=== PATIENT | male | born 1970 | race Caucasian/White ===

== ENCOUNTER 2021-09-08 22:02 | Inpatient (IN) | payer OTHER, SELFPAY ==
[2021-09-09 00:28] VITALS: BMI 32.2
[2021-09-09] MEDS ORDERED: Nitroglycerin 0.4 MG TAB (25 Tab Bottle) SL PRN ×2 (01:31→15:22)
[2021-09-09] MEDS ORDERED: Ondansetron ODT 4 MG TAB PO PRN (01:31)
[2021-09-09] MEDS: Acetaminophen 325 MG TAB PO PRN ×2 (02:06→15:20)
[2021-09-09] MEDS ORDERED: Lorazepam 2 MG/ML VIAL IM PRN (02:07)
[2021-09-09] MEDS ORDERED: hydrALAZINE 10 MG TAB PO PRN ×2 (02:24→02:34)
[2021-09-09 03:12] LABS: #Eosinphils 0.2 thou/uL (0.0-0.7); #Monocytes 0.5 thou/uL (0.11-0.59); #Neutrophils 4.5 thou/uL (1.40-6.50); %Basophils 0.3 % (0.0-1.0); %Eosinophils 2.6 % (0.0-10.0); %Lymphocytes 27.6 % (21.0-51.0); %Monocytes 7.3 % (0.0-10.0); %Neutrophils 62.2 % (42.0-75.0); Mean Corpuscular HGB CONC 33.8 g/dL (32.0-36.0); Mean Corpuscular Hemoglobin 33.1 pg (27.0-31.0); Mean Corpuscular Volume 97.8 fL (78.0-98.0); Mean Platelet Volume 7.4 fL (7.4-10.4); Platelet Count 202 thou/uL (130-400); RBC Distribution Width 11.6 % (11.5-14.5); Red Blood Cell (RBC) Count 4.53 mill/uL (4.70-6.10); White Blood Cell (WBC) Count 7.3 thou/uL (4.8-10.8)
[2021-09-09 03:31] LABS: Troponin I 0.034 ng/mL (< 0.028)
[2021-09-09 03:37] LABS: Hemoglobin A1c 5.2 % (4.0-6.0)
[2021-09-09 03:39] LABS: Phosphorus 3.7 mg/dL (2.3-4.7)
[2021-09-09 03:40] LABS: Anion Gap 15 mmol/L (10-20); BUN (Urea Nitrogen) 12 mg/dL (8.4-25.7); Calc. Creatinine Clearance 150 mL/min (70-130); Carbon Dioxide 21 mmol/L (22-29); Cardiac Risk 5.9 (Less than 4.5); Chloride 105 mmol/L (98-107); Cholesterol 176 mg/dl (< 200 Desired); Estimated GFR 105; Glucose 100 mg/dL (70-105); HDL Cholesterol 30 mg/dL (>60 Neg Risk); LDL Cholesterol, Calculated 110 mg/dL; Potassium 3.9 mmol/L (3.5-5.1); Sodium 137 mmol/L (136-145); Triglycerides 178 mg/dL (Less than 150)
[2021-09-09 07:06] LABS: Troponin I 0.023 ng/mL (< 0.028)
[2021-09-09] MEDS ORDERED: Multivit, Therapeutic 1 TAB PO SCH (09:00)
[2021-09-09] MEDS ORDERED: Folic Acid 1 MG TAB PO SCH (09:00)
[2021-09-09] MEDS ORDERED: Iopamidol 370 76% 100 ML VIAL ONE (09:25)
[2021-09-09] MEDS ORDERED: Communication Order-Pharmacy FS SCH (13:00)
[2021-09-09] MEDS ORDERED: Lidocaine 1% (PF) 30 ML VIAL ONE (13:01)
[2021-09-09] MEDS ORDERED: Heparin 10,000 UNITS/ 10 ML VIAL ONE (13:42)
[2021-09-09] MEDS ORDERED: Verapamil 5 MG/2 ML VIAL ONE (13:42)
[2021-09-09] MEDS ORDERED: Nitroglycerin 100MG/250ML BOT 250 ML ONE (13:42)
[2021-09-09] MEDS ORDERED: Midazolam HCl 2 mg/2 ml Vial ONE (13:53)
[2021-09-09] MEDS ORDERED: Lisinopril 10 MG TAB PO SCH (15:00)
[2021-09-09] MEDS ORDERED: Enoxaparin Sodium 100 MG/ML SYRINGE SC SCH ×2 (15:15→21:00)
[2021-09-09] MEDS ORDERED: Sodium Chloride 0.9% 200 ML IV PRN (15:22)
[2021-09-09] MEDS ORDERED: Acetaminophen/Codeine 30-300mg Tablet PO PRN ×2 (15:22)
[2021-09-09] MEDS ORDERED: Diazepam 5 MG TAB PO PRN (15:42)
[2021-09-09] MEDS ORDERED: Communication Order-Pharmacy FS ONE (15:42)
[2021-09-09] MEDS ORDERED: Atorvastatin Calcium 40 MG TAB PO SCH (21:00)
[2021-09-10] MEDS ORDERED: Lorazepam 1 MG TAB PO PRN (02:08)
[2021-09-10] MEDS ORDERED: Lisinopril 10 MG TAB PO SCH (09:00)
[2021-09-10] MEDS ORDERED: Lidocaine 1% MPF 2 ML VIAL ONE (10:03)
[2021-09-10] MEDS ORDERED: Bupivacaine PF 0.5% 30 ML VIAL ONE (11:11)
[2021-09-10] MEDS ORDERED: Albumin 5% 500 ML ONE (11:11)
[2021-09-10] MEDS ORDERED: EPINEPHrine 1 MG/ML AMP ONE (11:11)
[2021-09-10] MEDS ORDERED: Dexamethasone 4 mg/ml Vial ONE (11:11)
[2021-09-10] MEDS ORDERED: Heparin 10,000 UNITS/1 ML VIAL 30,000 UNITS in Sodium Chloride 0.9% 1,000 ML FS SCH (12:00)
[2021-09-10] MEDS ORDERED: ceFAZolin 2 GM/Dextrose 50 ML 2 GM in Premix Bag 1 BAG IVPB SCH ×2 (12:00→17:41)
[2021-09-10] MEDS ORDERED: Fentanyl 100 MCG/2 ML VIAL ONE ×4 (12:47→12:50)
[2021-09-10] MEDS ORDERED: Midazolam HCl 2 mg/2 ml Vial ONE (13:18)
[2021-09-10] MEDS ORDERED: CEFAZOLIN 2 GM VIAL ONE (13:21)
[2021-09-10] MEDS ORDERED: Sodium Chloride 0.9% 100 ML ONE (13:21)
[2021-09-10] MEDS ORDERED: Rocuronium Bromide 10 MG/ML (10ML VIAL) ONE (13:45)
[2021-09-10] MEDS ORDERED: Sodium Bicarb 50 MEQ/50 ML Abboject 8.4% SYRINGE ONE ×2 (13:45)
[2021-09-10] MEDS ORDERED: Vecuronium 10 MG VIAL ONE (13:45)
[2021-09-10] MEDS ORDERED: Esmolol 100 MG/10 ML VIAL ONE (13:45)
[2021-09-10] MEDS ORDERED: Mannitol 12.5 GM/50 ML ONE ×2 (13:45)
[2021-09-10] MEDS ORDERED: Lidocaine 2% PF 100 mg/5 ml Syringe ONE ×2 (13:45)
[2021-09-10] MEDS ORDERED: Nitroglycerin 50 MG/250 ML BOT ONE (13:45)
[2021-09-10] MEDS ORDERED: Cardioplegic Soln 1,000 ML BAG ONE ×2 (13:45)
[2021-09-10] MEDS ORDERED: Norepinephrine 4 MG/4 ML VIAL ONE (13:45)
[2021-09-10] MEDS ORDERED: Protamine Sulfate 250 MG/25 ML VIAL ONE ×2 (13:45)
[2021-09-10] MEDS ORDERED: PROPOFOL 200 MG/20 ML VIAL ONE (13:45)
[2021-09-10] MEDS ORDERED: Calcium Chloride 1 GM/10 ML Abboject SYRINGE ONE ×2 (13:45)
[2021-09-10] MEDS ORDERED: Phenylephrine 10 MG/ML VIAL ONE (13:45)
[2021-09-10] MEDS ORDERED: Thrombin 5000 UNITS/5 ML VIAL ONE ×2 (13:45)
[2021-09-10] MEDS ORDERED: Lidocaine 1% PF 5 ML VIAL ONE (13:45)
[2021-09-10] MEDS ORDERED: Magnesium Sulfate 1 GM/2 ML VIAL ONE ×2 (13:45)
[2021-09-10] MEDS ORDERED: Papaverine 60 MG/2 ML VIAL ONE ×2 (13:45)
[2021-09-10] MEDS ORDERED: ePHEDrine 50 MG/ML VIAL ONE (13:45)
[2021-09-10] MEDS ORDERED: Heparin 5,000 UNITS/ML VIAL ONE ×2 (13:45)
[2021-09-10] MEDS ORDERED: Heparin 30,000 units/30 ml VIAL ONE ×2 (13:45)
[2021-09-10] MEDS ORDERED: Aminocaproic Acid 5 GM/20 ML VIAL ONE ×2 (13:45)
[2021-09-10] MEDS ORDERED: Dexmedetomidine 200 MCG/2 ML VIAL ONE (14:12)
[2021-09-10] MEDS ORDERED: Midazolam HCl 5 mg/5 ml Vial ONE ×2 (14:12→15:38)
[2021-09-10] MEDS ORDERED: Heparin 10,000 UNITS/ 10 ML VIAL ONE (14:31)
[2021-09-10] MEDS ORDERED: PHENYLEPHRINE-NS 100 MCG/ML 10 ML SYRINGE ONE (14:31)
[2021-09-10] MEDS ORDERED: Rocuronium Bromide 50 MG/5 ML VIAL ONE (15:38)
[2021-09-10 16:09] LABS: Actual Bicarbonate (HCO3a) 18.9 mEq/L (22-28); Analyzer IN Cardio OR; Base Excess (BEa) -6.6 mEq/L (-2.0 to +3.0); CO2 Tension 37.7 mmHg (35.0-45.0); Calcium, Ionized (arterial) 1.16 mmol/L (1.12-1.30); Carboxyhemoglobin (COHb) 1.5 gm% (0.0-3.0); Hemoglobin (Hb) 14.3 g/dL (14.0-18.0); O2 Tension (PaO2), arterial 372.7 mmHg (80.0-100.0); Potassium - ABG Lab 3.63 mmol/L (3.70-5.30); pH, Arterial 7.32 (7.35-7.45)
[2021-09-10] MEDS ORDERED: Fentanyl 100 MCG/2 ML VIAL SLOW IVP PRN (17:41)
[2021-09-10] MEDS ORDERED: Ondansetron PF 4 MG/2 ML Vial IVP PRN (17:41)
[2021-09-10] MEDS ORDERED: hydrALAZINE 20 MG/ML VIAL SLOW IVP PRN (17:41)
[2021-09-10] MEDS ORDERED: Mag-Al 1200 mg/1200 mg/30 ML UDCUP PO PRN (17:41)
[2021-09-10] MEDS ORDERED: Bisacodyl 5 MG TAB PO PRN (17:41)
[2021-09-10] MEDS ORDERED: Nitroglycerin 50 MG/250 ML BOT 250 ML IVPB PRN (17:41)
[2021-09-10] MEDS ORDERED: Bisacodyl 10 MG SUPP PR PRN (17:41)
[2021-09-10] MEDS ORDERED: Magnesium 2 GM/50 ML(in water) 2 GM in Premix Bag 1 BAG IVPB SCH (17:41)
[2021-09-10] MEDS ORDERED: Norepinephrine 8 MG/0.9% NS 250 ML IVPB PRN (17:41)
[2021-09-10] MEDS ORDERED: Hetastarch 6% 500 ML 500 ML IVPB PRN (17:41)
[2021-09-10] MEDS ORDERED: D5 1/2 NS w/20 mEq KCL 1,000 ML IV SCH (17:41)
[2021-09-10] MEDS ORDERED: Potassium Chloride 20 MEQ/100 ML PREMIX BAG IVPB PRN (17:41)
[2021-09-10] MEDS ORDERED: Guaifenesin DM 100-10/5 ML UDCUP PO PRN (17:41)
[2021-09-10] MEDS ORDERED: Acetaminophen 325 MG TAB PO PRN (17:41)
[2021-09-10] MEDS ORDERED: Nitroglycerin 50 MG/250 ML BOT 250 ML ONE (17:49)
[2021-09-10] MEDS: Morphine 2 MG/ML VIAL SLOW IVP PRN ×3 (17:52→22:43)
[2021-09-10 17:53] LABS: Actual Bicarbonate (HCO3a) 23.5 mEq/L (22-28); Base Excess (BEa) -1.5 mEq/L (-2.0 to +3.0); CO2 Tension 40.7 mmHg (35.0-45.0); Calcium, Ionized (arterial) 1.13 mmol/L (1.12-1.30); Carboxyhemoglobin (COHb) 1.4 gm% (0.0-3.0); Hemoglobin (Hb) 13.7 g/dL (14.0-18.0); O2 Tension (PaO2), arterial 64.2 mmHg (80.0-100.0); Potassium - ABG Lab 3.52 mmol/L (3.70-5.30); pH, Arterial 7.38 (7.35-7.45)
[2021-09-10 17:57] LABS: Puncture Site Arterial Line
[2021-09-10 17:58] LABS: ALV-art Gradient 241.425 mmHg (0-20)
[2021-09-10 18:01] LABS: #Eosinphils 0.1 thou/uL (0.0-0.7); #Lymphocytes 2.3 thou/uL (1.20-3.40); #Monocytes 0.6 thou/uL (0.11-0.59); #Neutrophils 12.9 thou/uL (1.40-6.50); %Basophils 0.1 % (0.0-1.0); %Eosinophils 0.9 % (0.0-10.0); %Lymphocytes 14.4 % (21.0-51.0); %Monocytes 3.5 % (0.0-10.0); %Neutrophils 81.1 % (42.0-75.0); Hemoglobin 13.3 g/dL (14.0-18.0); Mean Corpuscular HGB CONC 33.3 g/dL (32.0-36.0); Mean Corpuscular Hemoglobin 32.4 pg (27.0-31.0); Mean Corpuscular Volume 97.3 fL (78.0-98.0); Platelet Count 166 thou/uL (130-400); RBC Distribution Width 11.6 % (11.5-14.5); White Blood Cell (WBC) Count 15.9 thou/uL (4.8-10.8)
[2021-09-10] MEDS ORDERED: Potassium Chloride 20 MEQ in Premix Bag 1 BAG IVPB PRN (18:05)
[2021-09-10 18:12] LABS: INR-International Normal Ratio 1.2; Prothrombin Time 15.1 sec (12.0-14.7)
[2021-09-10] MEDS ORDERED: HUMULIN R 100 UNITS in Sodium Chloride 0.9% 100 ML IVPB SCH (18:15)
[2021-09-10] MEDS ORDERED: Dextrose 5% in Water 1,000 ML IV PRN (18:15)
[2021-09-10] MEDS ORDERED: Dextrose 50% Abboject 50 ML SYRINGE SLOW IVP PRN (18:15)
[2021-09-10] MEDS: Ketorolac Tromethamine 30 MG/ML VIAL IVP SCH ×2 (18:19→23:36)
[2021-09-10 18:27] LABS: Anion Gap 15 mmol/L (10-20); BUN (Urea Nitrogen) 14 mg/dL (8.4-25.7); Calc. Creatinine Clearance 136 mL/min (70-130); Calcium 8.1 mg/dL (7.8-10.44); Carbon Dioxide 22 mmol/L (22-29); Chloride 108 mmol/L (98-107); Estimated GFR 103; Glucose 142 mg/dL (70-105); Potassium 3.6 mmol/L (3.5-5.1); Sodium 141 mmol/L (136-145)
[2021-09-10] MEDS: Insulin Regular 300 UNITS/3 ML VIAL SC PRN ×2 (18:30→23:43)
[2021-09-10] MEDS: CEFAZOLIN 2 GM in Sodium Chloride 0.9% 100 ML IVPB SCH (20:07)
[2021-09-10] MEDS: Fentanyl 100 MCG/2 ML VIAL SLOW IVP PRN (20:14)
[2021-09-10] MEDS ORDERED: Famotidine/PF 20 mg/2ml Vial SLOW IVP SCH (21:00)
[2021-09-10] MEDS: Atorvastatin Calcium 40 MG TAB PO SCH (21:56)
[2021-09-10 23:08] LABS: Base Excess (BEa) -1.9 mEq/L (-2.0 to +3.0); CO2 Tension 34.7 mmHg (35.0-45.0); Calcium, Ionized (arterial) 1.14 mmol/L (1.12-1.30); Carboxyhemoglobin (COHb) 1.2 gm% (0.0-3.0); Hemoglobin (Hb) 13.8 g/dL (14.0-18.0); O2 Tension (PaO2), arterial 84.2 mmHg (80.0-100.0); Potassium - ABG Lab 4.05 mmol/L (3.70-5.30); pH, Arterial 7.42 (7.35-7.45)
[2021-09-10 23:15] LABS: ALV-art Gradient 121.975 mmHg (0-20); Puncture Site Arterial Line
[2021-09-10] MEDS: traMADol HCl 50 MG TAB PO PRN (23:34)
[2021-09-10 23:36] LABS: Hemoglobin 13.4 g/dL (14.0-18.0)
[2021-09-10 23:49] LABS: Potassium 4.1 mmol/L (3.5-5.1)
[2021-09-11] MEDS: Fentanyl 100 MCG/2 ML VIAL SLOW IVP PRN ×2 (02:00→08:12)
[2021-09-11] MEDS: Insulin Regular 300 UNITS/3 ML VIAL SC PRN (04:03)
[2021-09-11 04:15] LABS: #Lymphocytes 0.6 thou/uL (1.20-3.40); #Monocytes 0.7 thou/uL (0.11-0.59); #Neutrophils 11.7 thou/uL (1.40-6.50); %Eosinophils 0.1 % (0.0-10.0); %Lymphocytes 4.6 % (21.0-51.0); %Monocytes 5.6 % (0.0-10.0); %Neutrophils 89.7 % (42.0-75.0); Mean Corpuscular HGB CONC 34.4 g/dL (32.0-36.0); Mean Corpuscular Hemoglobin 33.4 pg (27.0-31.0); Mean Platelet Volume 7.5 fL (7.4-10.4); Platelet Count 196 thou/uL (130-400); RBC Distribution Width 11.6 % (11.5-14.5); White Blood Cell (WBC) Count 13.1 thou/uL (4.8-10.8)
[2021-09-11 04:33] LABS: Anion Gap 16 mmol/L (10-20); BUN (Urea Nitrogen) 16 mg/dL (8.4-25.7); Calc. Creatinine Clearance 137 mL/min (70-130); Calcium 8.3 mg/dL (7.8-10.44); Carbon Dioxide 20 mmol/L (22-29); Chloride 108 mmol/L (98-107); Estimated GFR 99; Glucose 132 mg/dL (70-105); Potassium 4.3 mmol/L (3.5-5.1); Sodium 140 mmol/L (136-145)
[2021-09-11] MEDS: CEFAZOLIN 2 GM in Sodium Chloride 0.9% 100 ML IVPB SCH ×2 (05:00→12:56)
[2021-09-11] MEDS: Ketorolac Tromethamine 30 MG/ML VIAL IVP SCH ×3 (06:00→18:05)
[2021-09-11] MEDS: Magnesium 2 GM/50 ML(in water) 2 GM in Premix Bag 1 BAG IVPB SCH (08:39)
[2021-09-11] MEDS: Aspirin 325 MG TAB PO SCH (08:41)
[2021-09-11] MEDS: traMADol HCl 50 MG TAB PO PRN (11:55)
[2021-09-11] MEDS: BEER 1 CAN PO SCH ×3 (12:55→21:43)
[2021-09-11] MEDS: ALPRAZolam 0.25 MG TAB PO PRN (13:40)
[2021-09-11] MEDS ORDERED: Methyl Salicylate/Menthol 85 GM TUBE TOP PRN (18:00)
[2021-09-11] MEDS ORDERED: Insulin Glargine 30 UNITS/0.3 ML VIAL SC PRN (18:03)
[2021-09-11] MEDS: Atorvastatin Calcium 40 MG TAB PO SCH (21:09)
[2021-09-12] MEDS: Ketorolac Tromethamine 30 MG/ML VIAL IVP SCH ×5 (00:39→23:19)
[2021-09-12] MEDS: traMADol HCl 50 MG TAB PO PRN ×2 (08:00→19:48)
[2021-09-12] MEDS: ALPRAZolam 0.25 MG TAB PO PRN (08:01)
[2021-09-12] MEDS: BEER 1 CAN PO SCH ×4 (08:04→20:06)
[2021-09-12 08:11] LABS: #Eosinphils 0.1 thou/uL (0.0-0.7); #Monocytes 0.6 thou/uL (0.11-0.59); #Neutrophils 10.7 thou/uL (1.40-6.50); %Basophils 0.2 % (0.0-1.0); %Eosinophils 0.4 % (0.0-10.0); %Lymphocytes 8.2 % (21.0-51.0); %Monocytes 5.1 % (0.0-10.0); %Neutrophils 86.1 % (42.0-75.0); Hemoglobin 11.3 g/dL (14.0-18.0); Mean Corpuscular HGB CONC 33.2 g/dL (32.0-36.0); Mean Corpuscular Hemoglobin 33.1 pg (27.0-31.0); Mean Corpuscular Volume 99.7 fL (78.0-98.0); Mean Platelet Volume 7.8 fL (7.4-10.4); Platelet Count 176 thou/uL (130-400); RBC Distribution Width 11.7 % (11.5-14.5); White Blood Cell (WBC) Count 12.4 thou/uL (4.8-10.8)
[2021-09-12 08:24] LABS: ALT (SGPT) 17 U/L (8-55); AST (SGOT) 24 U/L (5-34); Albumin 3.4 g/dL (3.5-5.0); Alkaline Phosphatase 51 U/L (40-110); Anion Gap 12 mmol/L (10-20); BUN (Urea Nitrogen) 27 mg/dL (8.4-25.7); Bilirubin, Total 1.5 mg/dL (0.2-1.2); Calc. Creatinine Clearance 101 mL/min (70-130); Calcium 8.2 mg/dL (7.8-10.44); Carbon Dioxide 24 mmol/L (22-29); Chloride 104 mmol/L (98-107); Estimated GFR 73; Globulin 2.4 g/dL (2.4-3.5); Glucose 146 mg/dL (70-105); Potassium 3.5 mmol/L (3.5-5.1); Protein, Total 5.8 g/dL (6.0-8.3); Sodium 136 mmol/L (136-145)
[2021-09-12] MEDS: Aspirin 325 MG TAB PO SCH (08:34)
[2021-09-12] MEDS: Magnesium 2 GM/50 ML(in water) 2 GM in Premix Bag 1 BAG IVPB SCH (08:34)
[2021-09-12] MEDS ORDERED: Thiamine 100 MG TAB PO SCH (09:00)
[2021-09-12] MEDS: Atorvastatin Calcium 40 MG TAB PO SCH (20:08)
[2021-09-13 04:48] LABS: #Eosinphils 0.2 thou/uL (0.0-0.7); #Lymphocytes 1.6 thou/uL (1.20-3.40); #Monocytes 1.3 thou/uL (0.11-0.59); #Neutrophils 9.4 thou/uL (1.40-6.50); %Basophils 0.1 % (0.0-1.0); %Eosinophils 1.3 % (0.0-10.0); %Lymphocytes 12.8 % (21.0-51.0); %Monocytes 10.4 % (0.0-10.0); %Neutrophils 75.3 % (42.0-75.0); Hemoglobin 11.1 g/dL (14.0-18.0); Mean Corpuscular HGB CONC 33.5 g/dL (32.0-36.0); Mean Corpuscular Hemoglobin 33.1 pg (27.0-31.0); Mean Corpuscular Volume 98.9 fL (78.0-98.0); Mean Platelet Volume 7.5 fL (7.4-10.4); Platelet Count 205 thou/uL (130-400); RBC Distribution Width 11.6 % (11.5-14.5); Red Blood Cell (RBC) Count 3.34 mill/uL (4.70-6.10); White Blood Cell (WBC) Count 12.5 thou/uL (4.8-10.8)
[2021-09-13 05:01] LABS: ALT (SGPT) 35 U/L (8-55); AST (SGOT) 34 U/L (5-34); Albumin 3.3 g/dL (3.5-5.0); Alkaline Phosphatase 75 U/L (40-110); Anion Gap 13 mmol/L (10-20); BUN (Urea Nitrogen) 25 mg/dL (8.4-25.7); Bilirubin, Total 1.5 mg/dL (0.2-1.2); Calc. Creatinine Clearance 116 mL/min (70-130); Calcium 8.2 mg/dL (7.8-10.44); Carbon Dioxide 24 mmol/L (22-29); Chloride 103 mmol/L (98-107); Estimated GFR 87; Globulin 2.7 g/dL (2.4-3.5); Glucose 105 mg/dL (70-105); Potassium 3.8 mmol/L (3.5-5.1); Sodium 136 mmol/L (136-145)
[2021-09-13] MEDS: Ketorolac Tromethamine 30 MG/ML VIAL IVP SCH ×3 (05:55→18:25)
[2021-09-13] MEDS ORDERED: Guaifenesin DM 100-10/5 ML UDCUP PO PRN (07:09)
[2021-09-13] MEDS ORDERED: Nitroglycerin 0.4 MG TAB (25 Tab Bottle) SL PRN (07:09)
[2021-09-13] MEDS ORDERED: Mineral Oil ENEMA PR PRN (07:09)
[2021-09-13] MEDS ORDERED: Bisacodyl 5 MG TAB PO PRN (07:09)
[2021-09-13] MEDS ORDERED: diphenhydrAMINE 25 MG CAP PO PRN (07:09)
[2021-09-13] MEDS ORDERED: Bisacodyl 10 MG SUPP PR PRN (07:09)
[2021-09-13] MEDS ORDERED: Mag-Al 1200 mg/1200 mg/30 ML UDCUP PO PRN (07:09)
[2021-09-13] MEDS ORDERED: Milk Of Magnesia 30 ML UDCUP PO PRN (07:09)
[2021-09-13] MEDS ORDERED: Zolpidem Tartrate 5 MG TAB PO PRN (07:09)
[2021-09-13] MEDS: BEER 1 CAN PO SCH ×4 (07:44→21:13)
[2021-09-13] MEDS: Aspirin 325 mg Enteric Coated Tablet PO SCH (07:44)
[2021-09-13] MEDS ORDERED: Furosemide 40 MG/4 ML VIAL SLOW IVP SCH (11:45)
[2021-09-13] MEDS: Atorvastatin Calcium 40 MG TAB PO SCH (21:13)
[2021-09-13] MEDS: traMADol HCl 50 MG TAB PO PRN (23:02)
[2021-09-14] MEDS: traMADol HCl 50 MG TAB PO PRN ×2 (06:18→11:39)
[2021-09-14 08:28] VITALS: TEMP 98.4
[2021-09-14] MEDS: Aspirin 325 mg Enteric Coated Tablet PO SCH (09:42)
[2021-09-14] MEDS: BEER 1 CAN PO SCH (09:43)
[2021-09-14 11:10] VITALS: BP 122/80
[2021-09-16 14:23] LABS: Actual Bicarbonate (HCO3a) 24.4 mEq/L (22-28); Analyzer IN Cardio OR; Base Excess (BEa) -0.7 mEq/L (-2.0 to +3.0); CO2 Tension 42.1 mmHg (35.0-45.0); Calcium, Ionized (arterial) 1.05 mmol/L (1.12-1.30); Carboxyhemoglobin (COHb) 0.5 gm% (0.0-3.0); Hemoglobin (Hb) 11.1 g/dL (14.0-18.0); O2 Tension (PaO2), arterial 455.5 mmHg (80.0-100.0); Potassium - ABG Lab 4.22 mmol/L (3.70-5.30); pH, Arterial 7.38 (7.35-7.45)
[2021-09-16 14:24] LABS: Actual Bicarbonate (HCO3v) 23 mEq/L (22-28); Analyzer IN Cardio OR; Base Excess -2.2 mEq/L (-2.0 to +3.0); Calcium, Ionized (venous) 1.09 mmol/L (1.16-1.32); Chloride (VBG) 105 mmol/L (98-106); Hemoglobin (Hb) 11.6 g/dL (13.1-17.2); Sodium 135.6 mmol/L (133-146); pH (venous) 7.37 (7.32-7.43)
[2021-09-16 14:24] LABS: Actual Bicarbonate (HCO3a) 23.6 mEq/L (22-28); Analyzer IN Cardio OR; Base Excess (BEa) -1.9 mEq/L (-2.0 to +3.0); CO2 Tension 43.2 mmHg (35.0-45.0); Calcium, Ionized (arterial) 1.08 mmol/L (1.12-1.30); Carboxyhemoglobin (COHb) 0.7 gm% (0.0-3.0); Hemoglobin (Hb) 11.4 g/dL (14.0-18.0); O2 Tension (PaO2), arterial 346.2 mmHg (80.0-100.0); pH, Arterial 7.36 (7.35-7.45)
[2021-09-16 14:25] LABS: Actual Bicarbonate (HCO3a) 21.3 mEq/L (22-28); Analyzer IN Cardio OR; Base Excess (BEa) -1.1 mEq/L (-2.0 to +3.0); CO2 Tension 29.8 mmHg (35.0-45.0); Calcium, Ionized (arterial) 1.18 mmol/L (1.12-1.30); Carboxyhemoglobin (COHb) 1.2 gm% (0.0-3.0); Hemoglobin (Hb) 14.6 g/dL (14.0-18.0); O2 Tension (PaO2), arterial 368.4 mmHg (80.0-100.0); Potassium - ABG Lab 3.66 mmol/L (3.70-5.30); pH, Arterial 7.47 (7.35-7.45)
[2021-09-16 14:25] LABS: Actual Bicarbonate (HCO3a) 21.1 mEq/L (22-28); Analyzer IN Cardio OR; Base Excess (BEa) -3.3 mEq/L (-2.0 to +3.0); CO2 Tension 35.8 mmHg (35.0-45.0); Calcium, Ionized (arterial) 1.12 mmol/L (1.12-1.30); Carboxyhemoglobin (COHb) 1.2 gm% (0.0-3.0); Hemoglobin (Hb) 12.6 g/dL (14.0-18.0); O2 Tension (PaO2), arterial 185.3 mmHg (80.0-100.0); Potassium - ABG Lab 4.02 mmol/L (3.70-5.30); pH, Arterial 7.39 (7.35-7.45)
[2021-09-16 14:29] LABS: Puncture Site Arterial Line
[2021-09-16 14:30] LABS: Puncture Site Arterial Line
[2021-09-16 14:35] LABS: Puncture Site Arterial Line
[2021-09-16 14:37] LABS: Puncture Site Arterial Line
== END 2021-09-14 12:45 | disposition home or self-care (01) | DRG 234 ==
LOC: 2NO 22:02 → CCU 09-10 10:43 → 2NO 09-13 08:33
PROVIDERS: ADMIT Family Medicine; ATTEND Family Medicine
PROC: B2111ZZ Fluoroscopy of Multiple Coronary Arteries using Low Osmolar Contrast (ICD-10-PCS; 2021-09-09)
PROC: B2151ZZ Fluoroscopy of Left Heart using Low Osmolar Contrast (ICD-10-PCS; 2021-09-09)
PROC: 02100Z9 Bypass Coronary Artery, One Artery from Left Internal Mammary, Open Approach (ICD-10-PCS; principal; 2021-09-10)
PROC: 4A023N7 Measurement of Cardiac Sampling and Pressure, Left Heart, Percutaneous Approach (ICD-10-PCS; 2021-09-10)
PROC: 021209W Bypass Coronary Artery, Three Arteries from Aorta with Autologous Venous Tissue, Open Approach (ICD-10-PCS; 2021-09-10)
PROC: 06BQ4ZZ Excision of Left Saphenous Vein, Percutaneous Endoscopic Approach (ICD-10-PCS; 2021-09-10)
PROC: 02L70CK Occlusion of Left Atrial Appendage with Extraluminal Device, Open Approach (ICD-10-PCS; 2021-09-10)
PROC: 5A1221Z Performance of Cardiac Output, Continuous (ICD-10-PCS; 2021-09-10)
DX: I25.110 Atherosclerotic heart disease of native coronary artery with unstable angina pectoris (principal); K50.90 Crohn's disease, unspecified, without complications; F10.10 Alcohol abuse, uncomplicated; Z20.822 Contact with and (suspected) exposure to COVID-19; I95.9 Hypotension, unspecified; Z79.899 Other long term (current) drug therapy; Z98.890 Other specified postprocedural states
CPT/HCPCS: 36415; 36416; 36430; 71045; 80048; 80053; 80061; 82805; 83036; 83735; 84100; 84443; 84484; 85025; 85610; 85730; 86850; 86900; 86901; 93005; 93010; 93458; 93798; 94002; 94150; 94760; 99152; 99153; C1713; C1751; C1769; C1776; J0171; J0690; J1100; J1642; J1644; J1815; J1885; J1940; J2001; J2150; J2250; J2270; J2370; J2405; J2440; J2704; J2720; J3010; J3370; J3475; J3480; J3490; P9016; P9045; Q9967; S0017; S0020; S0028; U0003; U0005

== ENCOUNTER 2021-10-08 16:08 | Inpatient (IN) | payer OTHER ==
[2021-10-08 18:18] LABS: SARS-CoV-2 NAA Rapid Test Not Detected (NotDetected)
[2021-10-08] MEDS ORDERED: Ondansetron PF 4 MG/2 ML Vial IVP PRN (18:26)
[2021-10-08] MEDS ORDERED: HYDROcodone/Acetaminophen 5/325 mg Tablet PO PRN ×2 (18:28→19:17)
[2021-10-08] MEDS ORDERED: Fentanyl 100 MCG/2 ML VIAL SLOW IVP PRN ×3 (18:29→19:18)
[2021-10-08 19:13] VITALS: BMI 31.4
[2021-10-08] MEDS: HYDROcodone/Acetaminophen 5/325 mg Tablet PO PRN (20:04)
[2021-10-09 04:39] LABS: Anion Gap 13 mmol/L (10-20); BUN (Urea Nitrogen) 12 mg/dL (8.4-25.7); Calc. Creatinine Clearance 125 mL/min (70-130); Calcium 8.9 mg/dL (7.8-10.44); Carbon Dioxide 26 mmol/L (22-29); Chloride 100 mmol/L (98-107); Estimated GFR 95; Glucose 112 mg/dL (70-105); Potassium 3.8 mmol/L (3.5-5.1); Sodium 135 mmol/L (136-145)
[2021-10-09] MEDS ORDERED: Bupivacaine/Epinephrine 0.25% 30 ML VIAL ONE (11:16)
[2021-10-09] MEDS ORDERED: Bupivacaine PF 0.5% 30 ML VIAL ONE (11:16)
[2021-10-09] MEDS ORDERED: Midazolam HCl 2 mg/2 ml Vial ONE ×2 (11:36→11:53)
[2021-10-09] MEDS ORDERED: fentaNYL Citrate/PF 100 MCG/2 ML SYRINGE ONE (11:53)
[2021-10-09] MEDS ORDERED: HYDROmorphone 0.5 MG/0.5 ML SYRINGE ONE (11:54)
[2021-10-09] MEDS ORDERED: PROPOFOL 200 MG/20 ML VIAL ONE (12:04)
[2021-10-10] MEDS: HYDROcodone/Acetaminophen 5/325 mg Tablet PO PRN (06:03)
[2021-10-10 12:48] VITALS: BP 127/84; TEMP 98.8
== END 2021-10-10 13:00 | disposition home or self-care (01) | DRG 571 ==
LOC: ERS 16:08 → 2NO 16:28
PROVIDERS: ADMIT Thoracic Surgery (Cardiothoracic Vascular Surgery); ATTEND Thoracic Surgery (Cardiothoracic Vascular Surgery)
PROC: 0JBL0ZZ Excision of Right Upper Leg Subcutaneous Tissue and Fascia, Open Approach (ICD-10-PCS; principal; 2021-10-09)
DX: L02.415 Cutaneous abscess of right lower limb (principal); K50.90 Crohn's disease, unspecified, without complications; Z20.822 Contact with and (suspected) exposure to COVID-19; I25.10 Atherosclerotic heart disease of native coronary artery without angina pectoris; E78.5 Hyperlipidemia, unspecified; F10.10 Alcohol abuse, uncomplicated; Z95.1 Presence of aortocoronary bypass graft; Z28.311 Partially vaccinated for COVID-19; Z79.82 Long term (current) use of aspirin; Z79.899 Other long term (current) drug therapy
CPT/HCPCS: 36415; 80048; 87070; 87077; 87186; 87205; 93005; 96374; J1170; J1956; J2250; J2704; S0020; U0002